=== PATIENT | female | born 1995 | race Caucasian/White ===

== ENCOUNTER 2021-02-19 16:47 | Inpatient (IN) ==
[2021-02-19 18:17] LABS: ABS Basophils 0.1 10^3/ul (0-0.2); ABS Eosinophils 0.1 10^3/ul (0-0.6); ABS Lymphocytes 1.6 10^3/ul (1.0-4.8); ABS Monocytes 0.4 10^3/ul (0-0.8); ABS Neutrophils 4.8 10^3/ul (1.5-7.7); Eosinophil % 0.8 %; Hematocrit 27 % (35-47); Lymphocyte % 23.8 %; Mean Corpuscular HGB Conc 33 g/dL (31-36); Mean Corpuscular Hemoglobin 20 pg (27-31); Mean Corpuscular Volume 60 fL (80-97); Mean Platelet Volume 9.1 fL (7.4-10.4); Platelet Count 357 10^3/uL (150-450); Red Blood Count 4.59 10^6 /uL (3.70-4.87); Red Cell Distribution Width 16 % (10-15); White Blood Count 6.9 10^3/uL (3.5-10.8)
[2021-02-19 18:18] LABS: Urine Appearance Cloudy; Urine Bilirubin Negative (Negative); Urine Blood 1+ (Negative); Urine Color Yellow; Urine Glucose Negative (Negative); Urine Ketones Negative (Negative); Urine Nitrite Negative (Negative); Urine Protein Negative (Negative); Urine Specific Gravity 1.012 (1.002-1.030); Urine Urobilinogen Negative (Negative)
[2021-02-19 18:20] LABS: Urine Bacteria 1+ (Absent); Urine Red Blood Cell 2+(6-10/hpf) (Absent); Urine Squamous Epithelial Cell Present (Absent); Urine White Blood Cell Trace(0-5/hpf) (Absent)
[2021-02-19 18:25] LABS: Urine Benzodiazepine Screen None Detected (None Detect); Urine Cannabinoids Screen None Detected (None Detect); Urine Opiates Screen None Detected (None Detect)
[2021-02-19 18:32] LABS: ALT 82 U/L (7-52); AST 57 U/L (13-39); Albumin 4.3 g/dL (3.2-5.2); Albumin/Globulin Ratio 1.5 (1-3); Alkaline Phosphatase 61 U/L (35-149); Anion Gap 9 mmol/L (2-11); Blood Urea Nitrogen 12 mg/dL (6-24); CO2 Carbon Dioxide 23 mmol/L (22-32); Calcium 9.5 mg/dL (8.6-10.3); Chloride 106 mmol/L (101-111); EGFR African American 113.9 (>60); EGFR Non-African American 94.2 (>60); Globulin 2.8 g/dL (2-4); Glucose 97 mg/dL (70-100); Potassium 3.8 mmol/L (3.5-5.0); Sodium 138 mmol/L (135-145); Total Protein 7.1 g/dL (6.4-8.9)
[2021-02-19 18:34] LABS: Acetaminophen < 15 mcg/mL; Alcohol, S < 10 mg/dL (<10)
[2021-02-19 18:39] LABS: HCG Pregnancy < 0.60 mIU/mL
[2021-02-19 18:40] LABS: Microcytosis 3+
[2021-02-19 18:47] LABS: TSH Ultra Thyroid Stim Horm 1.48 mcIU/mL (0.34-5.60)
[2021-02-20] MEDS ORDERED: Atomoxetine 18 mg CAP (NF) PO ONE ×3 (08:31→15:00)
[2021-02-20] MEDS ORDERED: Atomoxetine 10 mg CAP (NF) PO SCH (09:00)
[2021-02-21] MEDS ORDERED: Al Hydrox/Mg Hydrox/Simet LIQ 30 ML UDC PO PRN (10:33)
[2021-02-21 20:36] LABS: % Iron Saturation 16 % (15-55); Iron 57 ug/dL (50-212); Total Iron Binding Capacity 357 mcg/dL (250-450); Transferrin 255 mg/dL (203-362); Unsaturated Iron Binding < 342 ug/dL
[2021-02-21 21:04] LABS: Free T4 0.78 ng/dL (0.61-1.12)
[2021-02-21] MEDS ORDERED: Nicotine GUM 4MG FRUIT FLAVOR PO ONE (21:37)
[2021-02-22] MEDS: Nicotine GUM 4MG FRUIT FLAVOR PO PRN ×3 (06:21→14:54)
[2021-02-22 08:02] LABS: HDL Cholesterol 59.2 mg/dL
[2021-02-22] MEDS: Nicotine PATCH 21 MG/24 HR PATCH TRANSDERM SCH (08:22)
[2021-02-23] MEDS: Nicotine PATCH 21 MG/24 HR PATCH TRANSDERM SCH (08:37)
[2021-02-23] MEDS: Nicotine GUM 4MG FRUIT FLAVOR PO PRN (08:41)
[2021-02-23 19:57] VITALS: BP 116/72
[2021-02-24] MEDS: Nicotine PATCH 21 MG/24 HR PATCH TRANSDERM SCH (08:27)
[2021-02-24] MEDS: Nicotine GUM 4MG FRUIT FLAVOR PO PRN (08:29)
== END 2021-02-24 13:55 | disposition home or self-care (01) ==
LOC: ED 16:47 → BSU 02-21 10:33
PROVIDERS: ADMIT Psychiatry & Neurology Psychiatry; ATTEND Psychiatry & Neurology Psychiatry